=== PATIENT | male | born 1940 | race Caucasian/White ===

== ENCOUNTER 2018-07-17 18:47 | Emergency (ER) | payer MEDICARE, OTHER ==
[~2018-07-17] VITALS: Ht 185.4 cm; Wt 103.0 kg
[2018-07-17] MEDS ORDERED: LIDOCAINE 1%, 10ML INFIL ONE (19:00)
--- NOTE | 2018-07-17 19:00 | NUR ---
States "i got up too fast this morning and got dizzy and fell." +head trauma, -loc, -c-spine tenderness. Denies dizziness since event. States wound on forehead reopened tonight. Denies blood thinner. SUPERFICIAL LAC TO MEDIAL FOREHEAD NEURO EXAM UNREMARKABLE
[2018-07-17 19:31] LABS: BASOPHILS # (AUTO) 0.03 x10^3/uL (0-0.1); BASOPHILS % (AUTO) 0 % (0-1); EOSINOPHILS # (AUTO) 0.22 x10^3/uL (0-0.4); EOSINOPHILS % (AUTO) 3 % (1-7); LYMPHOCYTES % (AUTO) 25 % (22-44); MD NO; MEAN CORPUSCULAR HEMOGLOBIN 32.5 pg (27.5-34.5); MEAN CORPUSCULAR HGB CONC 33.2 g/dL (33.2-36.2); MEAN CORPUSCULAR VOLUME 97.7 fL (81-97); MEAN PLATELET VOLUME 9.2 fL (7.4-10.4); MONOCYTES % (AUTO) 9 % (2-9); NEUTROPHILS # (AUTO) 4.65 x10^3/uL (1.8-6.8); NEUTROPHILS % (AUTO) 62 % (42-75); PLATELET COUNT 156 x10^3/uL (130-400); RED BLOOD COUNT 4.58 x10^6/uL (4.38-5.82); RED CELL DISTRIBUTION WIDTH 14.1 % (9.4-14.8)
[2018-07-17 19:33] VITALS: BP 133/88
[2018-07-17 19:35] LABS: ALANINE AMINOTRANSFERASE 32 U/L (12-78); ALBUMIN 3.7 g/dL (3.4-5.0); ANION GAP 8 mmol/L (5-15); CALCIUM 8.6 mg/dL (8.5-10.1); CHLORIDE 107 mmol/L (98-107); CREATININE 1.33 mg/dL (0.7-1.3)
[2018-07-17 19:39] LABS: ALKALINE PHOSPHATASE 90 U/L (45-117); BILIRUBIN,TOTAL 0.6 mg/dL (0.2-1.0); TOTAL PROTEIN 7.2 g/dL (6.4-8.2); TROPONIN I 0.019 ng/mL (0.000-0.045)
--- NOTE | 2018-07-17 20:00 | NUR ---
NEURO EXAM REMAIN UNREMARKABLE DOES HIS VITAL SIGNS TAKING PO FLUIDS/AMBULATING W/OUT DIFFICULTY REVIEWED SXS TO (SYNCOPY/PALPITATIONS) WATCH FOR WELL ORDERED WOUND CARE
[2018-07-17] MEDS ORDERED: BACITRACIN ZINC OINT 500U/GM, 0.9 GM ONE ×2 (20:08→20:25)
== END 2018-07-17 20:32 | disposition home or self-care (01) ==
LOC: ED 20:15
DX: S00.81XA Abrasion of other part of head, initial encounter (principal); I48.91 Unspecified atrial fibrillation; E78.00 Pure hypercholesterolemia, unspecified; Z90.49 Acquired absence of other specified parts of digestive tract; R55 Syncope and collapse; W19.XXXA Unspecified fall, initial encounter; Y93.89 Activity, other specified; Y92.009 Unspecified place in unspecified non-institutional (private) residence as the place of occurrence of the external cause; Y99.8 Other external cause status
CPT/HCPCS: 36415; 71045; 80053; 84484; 85025; 93005; 99284